=== PATIENT | female | born 1975 | race Hispanic/Latino ===

== ENCOUNTER 2017-09-27 14:52 | Emergency (ER) | payer SELFPAY ==
--- NOTE | 2017-09-27 15:20 | EDPHYS ---
Physician Documentation [facility] Name: Cyndi Ritter Age: 42 yrs Sex: Female : 1975 Arrival Date: 09/27/2017 Time: 14:53 Bed 30 Private MD: ED Physician Saleem Kendrick HPI: 09/27 15:13 This 42 yrs old Female presents to ER via Ambulatory with complaints of pm1 Ingrown Nail. 15:13 The patient presents with pain, that is chronic. The complaints affect the Left first pm1 toenail. Context: resulted from No trauma or injury, the patient can fully bear weight, the patient is able to ambulate. Onset: The symptoms/episode began/occurred 6 year(s) ago. Associated signs and symptoms: Pertinent negatives: fever, numbness, swelling, tingling. The patient has not recently seen a physician, and does not have an established primary care provider. Patient with left great toe nail thickening and pain for 6 years. Patient has not had any evaluation or treatment of left great toe nail in the past. No swelling, warmth, redness to left great toe. 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 - Social history:: Smoking status: Patient uses tobacco products, smokes one-half pack cigarettes per day. - Ebola Screening: : Patient negative for fever greater than or equal to 101.5 degrees Fahrenheit, and additional compatible Ebola Virus Disease symptoms Patient denies exposure to infectious person Patient denies travel to an Ebola-affected area in the 21 days before illness onset No symptoms or risks identified at this time. ROS: 15:13 MS/extremity: Positive for tenderness, of the left first toe, Negative for decreased pm1 range of motion, deformity, erythema, paresthesias, swelling, tingling, warmth. 15:13 Constitutional: Negative for fever, chills, and weight loss, Cardiovascular: Negative for chest pain, palpitations, and edema, Respiratory: Negative for shortness of breath, cough, wheezing, and pleuritic chest pain, Back: Negative for injury and pain, Skin: Negative for injury, rash, and discoloration. 15:13 Neuro: Negative for headache, weakness, numbness, tingling, and seizure. Exam: 15:13 Constitutional: This is a well developed, well nourished patient who is awake, alert, pm1 and in no acute distress. Head/Face: Normocephalic, atraumatic. Chest/axilla: Normal chest wall appearance and motion. Nontender with no deformity. No lesions are appreciated. Cardiovascular: Regular rate and rhythm with a normal S1 and S2. No gallops, murmurs, or rubs. Normal PMI, no JVD. No pulse deficits. Respiratory: Lungs have equal breath sounds bilaterally, clear to auscultation and percussion. No rales, rhonchi or wheezes noted. No increased work of breathing, no retractions or nasal flaring. Back: No spinal tenderness. No costovertebral tenderness. Full range of motion. Skin: Warm, dry with normal turgor. Normal color with no rashes, no lesions, and no evidence of cellulitis. 15:13 Musculoskeletal/extremity: Extremities: grossly normal except: noted in the Left first toenail: thickening and growth laterally. No evidence of ingrown toenail: No inflammation, redness, discharge, thickening of skin to left great toe nail. Vital Signs: 15:03 BP 111 / 85; Pulse 54; Resp 18; Temp 97.8; Pulse Ox 99% on R/A; Weight 99.79 kg; Height aj 5 ft. 5 in. (165.10 cm); 15:12 BP 94 / 58; rv 15:03 Body Mass Index 36.61 (99.79 kg, 165.10 cm) aj MDM: 15:08 Patient medically screened. pm1 15:13 Data reviewed: vital signs. Data interpreted: Pulse oximetry: on room air is 99 %. pm1 Interpretation: normal. 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 Administered Medications: No medications were administered Disposition: 17:11 Co-signature as Attending Physician, Saleem Kendrick MD I agree with the assessment and kdr plan of care. Disposition: 09/27/17 15:19 Discharged to Home. 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 - Condition is Stable. - Prescriptions for Tramadol 50 mg Oral Tablet - take 1 tablet by ORAL route every 8 hours as needed; 12 tablet. - Medication Reconciliation Form, Thank You Letter form. - Follow up: Private Physician; When: 2 - 3 days; Reason: Recheck today's complaints, Continuance of care, Re-evaluation by your physician. - Problem is new. - Symptoms have improved. Signatures: Maria R Bowling, RN RN aj Saleem Kendrick MD MD kdr Gamal Moscoso, [employer] BUSINESS EXECUTIVE pm1 Francisco Bustamante RN RN rv Corrections: (The following items were deleted from the chart) 15:49 15:19 09/27/2017 15:19 Discharged to Home. Impression: Onychogryphosis - Onychauxis of rv left great toe. Condition is Stable. Forms are Medication Reconciliation Form, Thank You Letter, Antibiotic Education, Prescription Opioid Use. Follow up: Private Physician; When: 2 - 3 days; Reason: Recheck today's complaints, Continuance of care, Re-evaluation by your physician. Problem is new. Symptoms have improved. pm1
--- NOTE | 2017-09-27 15:20 | ER ---
Nurse's Notes [facility] Name: Cyndi Ritter Age: 42 yrs Sex: Female : 1975 Arrival Date: 09/27/2017 Time: 14:53 Bed 30 Private MD: Diagnosis: Onychogryphosis-Onychauxis of left great toe Presentation: 09/27 15:03 Presenting complaint: Patient states: Ingrown toenail to left great toe. Transition of aj care: patient was not received from another setting of care. Onset of symptoms was September 27, 2017. Risk Assessment: Do you want to hurt yourself or someone else? Patient reports no desire to harm self or others. Initial Sepsis Screen: Does the patient meet any 2 criteria? No. Patient's initial sepsis screen is negative. Does the patient have a suspected source of infection? No. Patient's initial sepsis screen is negative. Care prior to arrival: None. 15:03 Method Of Arrival: Ambulatory aj 15:03 Acuity: OSITO 5 aj Triage Assessment: 15:03 General: Appears in no apparent distress. comfortable, Behavior is calm, cooperative, aj appropriate for age. Pain: Complains of pain in Left first toenail. Neuro: Level of Consciousness is awake, alert, obeys commands, Oriented to person, place, time, situation, Appropriate for age. Respiratory: Airway is patent Respiratory effort is even, unlabored, Respiratory pattern is regular, symmetrical. Derm: Skin is intact, is healthy with good turgor, Skin is pink, warm \T\ dry. normal. 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 - Social history:: Smoking status: Patient uses tobacco products, smokes one-half pack cigarettes per day. - Ebola Screening: : Patient negative for fever greater than or equal to 101.5 degrees Fahrenheit, and additional compatible Ebola Virus Disease symptoms Patient denies exposure to infectious person Patient denies travel to an Ebola-affected area in the 21 days before illness onset No symptoms or risks identified at this time. Screenin:12 Abuse screen: Denies threats or abuse. Denies injuries from another. Nutritional rv screening: No deficits noted. Tuberculosis screening: No symptoms or risk factors identified. Fall Risk None identified. Assessment: 15:11 General: Appears in no apparent distress. comfortable, Behavior is calm, cooperative. rv Pain: Complains of pain in Left first toenail. Neuro: Level of Consciousness is awake, alert, obeys commands, Oriented to person, place, time, situation. Cardiovascular: Heart tones S1 S2 present. Respiratory: Airway is patent. GI: No signs and/or symptoms were reported involving the gastrointestinal system. : No signs and/or symptoms were reported regarding the genitourinary system. EENT: No signs and/or symptoms were reported regarding the EENT system. Derm: Skin is intact. Vital Signs: 15:03 BP 111 / 85; Pulse 54; Resp 18; Temp 97.8; Pulse Ox 99% on R/A; Weight 99.79 kg; Height aj 5 ft. 5 in. (165.10 cm); 15:12 BP 94 / 58; rv 15:03 Body Mass Index 36.61 (99.79 kg, 165.10 cm) aj ED Course: 14:53 Patient arrived in ED. as 15:03 Triage completed. aj 15:03 Arm band placed on right wrist. Patient placed in an exam room. aj 15:06 Gamal Moscoso NP is PHCP. pm1 15:07 Saleem Kendrick MD is Attending Physician. pm1 15:12 Patient has correct armband on for positive identification. Bed in low position. Call rv light in reach. Side rails up X 1. Adult w/ patient. NIBP on. 15:49 No provider procedures requiring assistance completed. Patient did not have IV access rv during this emergency room visit. Administered Medications: No medications were administered Outcome: 15:19 Discharge ordered by . pm1 15:49 Discharged to home ambulatory. rv 15:49 Condition: good 15:49 Discharge instructions given to patient, Instructed on discharge instructions, follow up and referral plans. medication usage. 15:49 Patient left the ED. rv Signatures: Maria R Bowling RN RN Pita Miller as Gamal Moscoso NP FILM MOUNTER pm1 Francisco Bustamante RN RN rv
== END 2017-09-27 15:49 | disposition home or self-care (01) ==
LOC: ER 14:52
DX: L60.2 Onychogryphosis (principal); F17.210 Nicotine dependence, cigarettes, uncomplicated
CPT/HCPCS: 99281